=== PATIENT | male | born 1990 | race Caucasian/White ===

== ENCOUNTER 2019-06-30 02:27 | Inpatient (IN) ==
[2019-06-30] MEDS ORDERED: NS 1,000 ML IV ONE ×3 (02:38→05:14)
[2019-06-30 02:46] LABS: URINE SOURCE CATH
[2019-06-30] MEDS ORDERED: QUELICIN ONE (02:49)
[2019-06-30] MEDS ORDERED: AMIDATE ONE (02:50)
[2019-06-30 02:54] LABS: BILIRUBIN URINE SMALL (NEGATIVE); BLOOD URINE TRACE (NEGATIVE); COLOR YELLOW; GLUCOSE URINE NEGATIVE (NEGATIVE); KETONE URINE 40 mg/dL (NEGATIVE); LEUKOCYTES URINE NEGATIVE (NEGATIVE); NITRITE URINE NEGATIVE (NEGATIVE); PROTEIN URINE 200 mg/dL (NEGATIVE); SP GRAVITY URINE 1.034; TURBIDITY URINE HAZY (CLEAR); UROBILINOGEN URINE 3 mg/dL (NORMAL)
[2019-06-30 02:56] LABS: UR EPITHELIAL CELLS <10 /HPF (<10); URINE BACTERIA NEGATIVE /HPF; URINE RBC <10 /HPF (<10); URINE WBC TNTC /HPF (<10)
[2019-06-30 02:57] LABS: BASO# 0.06 X1000 (0.0-0.2); BASO% 0.4 % (0.0-0.8); HEMATOCRIT 42.5 % (42.0-52.0); HEMOGLOBIN 13.9 g/dL (14.0-18.0); IMM GRAN# 0.04 X1000 (0.0-0.04); IMM GRAN% 0.3 % (0.0-0.5); LYMPH# 1.56 X1000 (1.2-3.4); LYMPH% 11.4 % (20.5-51.1); MCH 29.4 PG (27-31); MCHC 32.7 g/dL (33-37); MCV 89.9 FL (81-99); MONO# 1.17 X1000 (0.11-0.59); MONO% 8.5 % (1.7-9.3); MPV 10.8 FL (7.4-10.4); NEUT# 10.88 X1000 (1.4-6.5); NEUT% 79.4 % (42.2-75.2); PLT 332 X1000 (130-400); RBC 4.73 XMIL (4.7-6.1); WBC 13.71 X1000 (4.8-10.8)
[2019-06-30] MEDS ORDERED: QUELICIN IV ONE (02:58)
[2019-06-30] MEDS ORDERED: DIPRIVAN 1% 1,000 MG/100 ML BOTTLE ONE (02:58)
[2019-06-30] MEDS ORDERED: DIPRIVAN 1% ONE (02:58)
[2019-06-30] MEDS ORDERED: AMIDATE IV ONE (02:58)
[2019-06-30 03:01] LABS: INR 1.18; PROTIME 15.1 Seconds (11.0-16.0); PTT 25.9 Seconds (22.3-41.8)
[2019-06-30] MEDS: DIPRIVAN 1% 1,000 MG/100 ML BOTTLE IV SCH ×8 (03:02→23:34)
[2019-06-30 03:03] LABS: URINE CASTS NONE SEEN; URINE CRYSTALS CA OXALATE PRESENT; URINE SMALL ROUND CELLS NONE SEEN; URINE YEAST NONE SEEN
[2019-06-30 03:15] LABS: UR AMPHETAMINES QUAL PRESUMPTIVE POSITIVE (NONE DETECT); UR BARBITUATES QUAL NONE DETECTED (NONE DETECT); UR BENZODIAZEPIN QUAL NONE DETECTED (NONE DETECT); UR CANNABINOIDS QUAL NONE DETECTED (NONE DETECT); UR COCAINE QUAL NONE DETECTED (NONE DETECT); UR METHADONE QUAL NONE DETECTED (NONE DETECT); UR OPIATES QUAL PRESUMPTIVE POSITIVE (NONE DETECT); UR OXYCODONE QUAL NONE DETECTED (NONE DETECT); UR PCP QUAL NONE DETECTED (NONE DETECT)
[2019-06-30 03:15] LABS: ALB/GLOB RATIO 1.6; ALBUMIN 4.5 g/dL (3.5-5.0); CALCIUM 9.5 mg/dL (8.8-10.2); CREATININE 1.6 mg/dL (0.7-1.2); POTASSIUM 3.7 mmol/L (3.5-5.1); TOTAL BILIRUBIN 0.63 mg/dL (0.20-1.00); TOTAL PROTEIN 7.4 g/dL (6.3-8.3)
[2019-06-30] MEDS ORDERED: NS 1,000 ML ONE (04:04)
[2019-06-30] MEDS ORDERED: DIPHTHERIA/TETANUS ADULT IM ONE (04:05)
[2019-06-30 04:15] LABS: ALLEN TEST YES; BE -0.6 mmoll (-3.0-3.0); BLOOD TYPE ARTERIAL; HCO3-(ACT) 24.4 mmoll (20.0-26.0); METHB 1.5 % (0.0-1.5); O2(CT) 17.5 mL/dL (15.0-23.0); O2HB 96.2 % (95.0-99.0); PCO2(98.6) 49 mmHg (35-45); PO2(98.6) 542 mmHg (60-100); SAMPLE BLOOD; SRATE 14 BPM; THB 11.8 g/dL (11.5-17.4); TVOL 500 mL; pH(98.6) 7.33 (7.35-7.45)
[2019-06-30 04:16] LABS: MODALITY VENTILATOR
--- NOTE | 2019-06-30 04:26 | PROVIDER DOCUMENTATION ---
[id number] Abuse/Overdose - General Chief Complaint: Altered Mental Status Stated Complaint: LACERATION CHIN AND HEAD Time Seen by Provider: 06/30/19 02:28 Unable to obtain history due to:: altered (Pt obtunded after getting 500mg ketamine which limits H&P.) Allergies/Adverse Reactions: Allergies Allergy/AdvReac Type Severity Reaction Status Date / Time Unable to Assess Allergy Unverified 06/30/19 05:18 - History of Present Illness-Drug/Alcohol Nature of Presenting Problem: 29 y/o Anibal Davila was brought to ER tonight by EMS. His father noted he admitted to using methamphetamines and heroin at about 5pm and around 9pm started becoming paranoid/hallucinating and displaying signs of psychosis. Father states that pt jumped head first through a window cutting his scalp. EMS notes that pt was having acute psychosis and needed to be medicated to get him to the ER with 500mg ketamine. On arrival in the ER pt is fully obtunded with snoring respirations. Nasal trumpet in place. This episode of drinking or use began:: last night Severity: reports: severe Situational problems related to:: reports: legal problems (father states that pt is on probation and got into drugs last night at [facility].) Psychiatric Complaints: reports: altered mental status, hostile Any injuries associated with this episode of intoxication?: Yes Recently seen or treated by another doctor?: No - Substance Abuse Substance Use: reports: amphetamines, opiates - Overdose List substance(s) ingested.: methamphetamines and heroin Suicide Risk Assessment: male sex, prior attempt, drug or ETOH abuse, rational thought loss (hallucinations), no spouse, psychosis Clinician's estimation of suicide risk?: high risk (Father states that pt has tried to kill self using drug OD before.) Review of Systems - Adult - REVIEW OF SYSTEMS - ADULT ROS:: unobtainable per condition Constitutional: reports: see HPI Eyes: reports: see HPI Ears, Nose, Mouth & Throat: reports: see HPI Cardiovascular: reports: see HPI Respiratory: reports: see HPI Gastrointestinal: reports: see HPI Genitourinary: reports: see HPI Musculoskeletal: reports: see HPI Integumentary: reports: see HPI Neurological: reports: see HPI Psychiatric: reports: see HPI, alcohol/drug dependence Endocrine: reports: see HPI Hematologic/Lymphatic: reports: see HPI Allergic/Immunologic: reports: see HPI All Other Systems: Reviewed and Negative Past History - Adult - PAST MEDICAL HISTORY-ADULT Review of Records: reports: Nursing Assessment Review, Medications Reviewed, Social history reviewed & non-contributory. Physical Exam-General - PHYSICAL EXAM-ADULT Exam Limited by: pt condition Initial Vital Signs Reviewed: Yes - CONSTITUTIONAL General Appearance: severe distress, obtunded - EYES Eyes: other (pinpoint 2mm pupils) - HEAD, EARS, NOSE, MOUTH & THROAT HENMT: moist mucous membranes, TMs normal - RESPIRATORY Respiratory: rhonchi (rt sided) - CARDIOVASCULAR Cardiovascular: normal peripheral pulses, tachycardia - GASTROINTESTINAL (ABDOMEN) Abdominal Exam: normal bowel sounds, soft - LYMPHATIC Lymphatic: no adenopathy - MUSCULOSKELETAL Extremity: no pedal edema, normal capillary refill - SKIN Integumentary: laceration(s) (3-4 cm rt sided scalp laceration) - NEUROLOGIC Neurologic: other (pt does have limited movement to all extremities) Progress - PLAN OF CARE/RESULTS Progress/Plan/Lab Results: Vital Signs - 8 hr 06/30/19 02:37 06/30/19 03:00 06/30/19 04:47 Temperature 99.1 F Pulse Rate 137 H 105 H Respiratory Rate 22 16 Blood Pressure 160/113 107/67 O2 Sat by Pulse Oximetry 97 100 100 06/30/19 05:00 06/30/19 05:15 06/30/19 05:30 Temperature Pulse Rate 101 H 102 H 102 H Respiratory Rate 15 15 17 Blood Pressure 105/60 115/61 111/61 O2 Sat by Pulse Oximetry 100 99 100 06/30/19 05:33 06/30/19 05:45 Temperature 96.3 F L Pulse Rate 97 H 99 H Respiratory Rate 14 15 Blood Pressure 111/61 117/59 O2 Sat by Pulse Oximetry 100 100 Laboratory Results - last 24 hr 06/30/19 06/30/19 06/30/19 02:30 02:30 02:30 WBC 13.71 H RBC 4.73 Hgb 13.9 L Hct 42.5 MCV 89.9 MCH 29.4 MCHC 32.7 L RDW Std Deviation 14.0 Plt Count 332 MPV 10.8 H Immature Gran % (Auto) 0.3 Neut % (Auto) 79.4 H Lymph % (Auto) 11.4 L [place] % (Auto) 8.5 Eos % (Auto) 0.0 Baso % (Auto) 0.4 Immature Gran # (Auto) 0.04 Neut # (Auto) 10.88 H Lymph # (Auto) 1.56 [place] # (Auto) 1.17 H Eos # (Auto) 0.00 Baso # (Auto) 0.06 PT INR PTT (Actin FS) Specimen Type Sample Site pH pCO2 pO2 HCO3 Base Excess Oxyhemoglobin ABG O2 Sat (Calculated) ABG O2 Saturation ABG Carboxyhemoglobin ABG Methemoglobin Gerardo Test A-a O2 Difference Total Hemoglobin Lactate Blood Gas Modality Spontaneous Rate FiO2 % Tidal Volume PEEP Sodium 139 Potassium 3.7 Chloride 97 L Carbon Dioxide 15 L Anion Gap 27 BUN 15 Creatinine 1.6 H Estimated GFR/1.73 m2 38 BUN/Creatinine Ratio 9 Glucose 181 H POC Glucose Calculated Osmolality 283 Calcium 9.5 Magnesium Total Bilirubin 0.63 AST 33 ALT 29 Alkaline Phosphatase 81 Creatine Kinase Creatine Kinase Index CK-MB (CK-2) Troponin T High Sens Total Protein 7.4 Albumin 4.5 Globulin 2.9 Albumin/Globulin Ratio 1.6 Plasma Lactate Urine Source Urine Color Urine Turbidity Urine pH Ur Specific Braham Urine Protein Ur Glucose (Stick) Ur Ketones (Stick) Urine Blood Urine Nitrite Urine Bilirubin Urobilinogen Dipstick Urine Leukocytes Urine WBC (Auto) Urine RBC (Auto) U Epithel Cells (Auto) Urine Bacteria (Auto) Urine Crystals Small Round Cells Urine Casts Urine Yeast-like Cells Urine Opiates Screen Ur Oxycodone Screen Ur Methadone, Qual Ur Barbiturates Screen Ur Phencyclidine Scrn Ur Amphetamines Screen U Benzodiazepines Scrn Urine Cocaine Screen U Cannabinoids Screen Plasma/Serum Ethyl Alc 06/30/19 06/30/19 06/30/19 02:30 02:30 02:30 WBC RBC Hgb Hct MCV MCH MCHC RDW Std Deviation Plt Count MPV Immature Gran % (Auto) Neut % (Auto) Lymph % (Auto) [place] % (Auto) Eos % (Auto) Baso % (Auto) Immature Gran # (Auto) Neut # (Auto) Lymph # (Auto) [place] # (Auto) Eos # (Auto) Baso # (Auto) PT 15.1 INR 1.18 PTT (Actin FS) 25.9 Specimen Type Sample Site pH pCO2 pO2 HCO3 Base Excess Oxyhemoglobin ABG O2 Sat (Calculated) ABG O2 Saturation ABG Carboxyhemoglobin ABG Methemoglobin Gerardo Test A-a O2 Difference Total Hemoglobin Lactate Blood Gas Modality Spontaneous Rate FiO2 % Tidal Volume PEEP Sodium Potassium Chloride Carbon Dioxide Anion Gap BUN Creatinine Estimated GFR/1.73 m2 BUN/Creatinine Ratio Glucose POC Glucose Calculated Osmolality Calcium Magnesium 2.2 Total Bilirubin AST ALT Alkaline Phosphatase Creatine Kinase 424 H Creatine Kinase Index 0.6 CK-MB (CK-2) 2.74 Troponin T High Sens 10 Total Protein Albumin Globulin Albumin/Globulin Ratio Plasma Lactate Urine Source Urine Color Urine Turbidity Urine pH Ur Specific Braham Urine Protein Ur Glucose (Stick) Ur Ketones (Stick) Urine Blood Urine Nitrite Urine Bilirubin Urobilinogen Dipstick Urine Leukocytes Urine WBC (Auto) Urine RBC (Auto) U Epithel Cells (Auto) Urine Bacteria (Auto) Urine Crystals Small Round Cells Urine Casts Urine Yeast-like Cells Urine Opiates Screen Ur Oxycodone Screen Ur Methadone, Qual Ur Barbiturates Screen Ur Phencyclidine Scrn Ur Amphetamines Screen U Benzodiazepines Scrn Urine Cocaine Screen U Cannabinoids Screen Plasma/Serum Ethyl Alc 06/30/19 06/30/19 06/30/19 02:41 02:41 03:55 WBC RBC Hgb Hct MCV MCH MCHC RDW Std Deviation Plt Count MPV Immature Gran % (Auto) Neut % (Auto) Lymph % (Auto) [place] % (Auto) Eos % (Auto) Baso % (Auto) Immature Gran # (Auto) Neut # (Auto) Lymph # (Auto) [place] # (Auto) Eos # (Auto) Baso # (Auto) PT INR PTT (Actin FS) Specimen Type ARTERIAL Sample Site R RADIAL pH 7.33 L pCO2 49 H pO2 542 H HCO3 24.4 Base Excess -0.6 Oxyhemoglobin 96.2 ABG O2 Sat (Calculated) 17.5 ABG O2 Saturation 100.0 ABG Carboxyhemoglobin 2.30 ABG Methemoglobin 1.5 Gerardo Test YES A-a O2 Difference 110.0 Total Hemoglobin 11.8 Lactate 0.90 Blood Gas Modality VENTILATOR Spontaneous Rate 14 FiO2 % 100.0 Tidal Volume 500 PEEP 5.0 Sodium Potassium Chloride Carbon Dioxide Anion Gap BUN Creatinine Estimated GFR/1.73 m2 BUN/Creatinine Ratio Glucose POC Glucose Calculated Osmolality Calcium Magnesium Total Bilirubin AST ALT Alkaline Phosphatase Creatine Kinase Creatine Kinase Index CK-MB (CK-2) Troponin T High Sens Total Protein Albumin Globulin Albumin/Globulin Ratio Plasma Lactate Urine Source CATH Urine Color YELLOW Urine Turbidity HAZY Urine pH 6.0 Ur Specific Braham 1.034 Urine Protein 200 A Ur Glucose (Stick) NEGATIVE Ur Ketones (Stick) 40 A Urine Blood TRACE A Urine Nitrite NEGATIVE Urine Bilirubin SMALL A Urobilinogen Dipstick 3 A Urine Leukocytes NEGATIVE Urine WBC (Auto) TNTC A Urine RBC (Auto) <10 U Epithel Cells (Auto) <10 Urine Bacteria (Auto) NEGATIVE Urine Crystals CA OXALATE PRESENT Small Round Cells NONE SEEN Urine Casts NONE SEEN Urine Yeast-like Cells NONE SEEN Urine Opiates Screen PRESUMPTIVE POSITIVE A Ur Oxycodone Screen NONE DETECTED Ur Methadone, Qual NONE DETECTED Ur Barbiturates Screen NONE DETECTED Ur Phencyclidine Scrn NONE DETECTED Ur Amphetamines Screen PRESUMPTIVE POSITIVE A U Benzodiazepines Scrn NONE DETECTED Urine Cocaine Screen NONE DETECTED U Cannabinoids Screen NONE DETECTED Plasma/Serum Ethyl Alc 06/30/19 06/30/19 05:06 05:15 WBC RBC Hgb Hct MCV MCH MCHC RDW Std Deviation Plt Count MPV Immature Gran % (Auto) Neut % (Auto) Lymph % (Auto) [place] % (Auto) Eos % (Auto) Baso % (Auto) Immature Gran # (Auto) Neut # (Auto) Lymph # (Auto) [place] # (Auto) Eos # (Auto) Baso # (Auto) PT INR PTT (Actin FS) Specimen Type Sample Site pH pCO2 pO2 HCO3 Base Excess Oxyhemoglobin ABG O2 Sat (Calculated) ABG O2 Saturation ABG Carboxyhemoglobin ABG Methemoglobin Gerardo Test A-a O2 Difference Total Hemoglobin Lactate Blood Gas Modality Spontaneous Rate FiO2 % Tidal Volume PEEP Sodium Potassium Chloride Carbon Dioxide Anion Gap BUN Creatinine Estimated GFR/1.73 m2 BUN/Creatinine Ratio Glucose POC Glucose 87 Calculated Osmolality Calcium Magnesium Total Bilirubin AST ALT Alkaline Phosphatase Creatine Kinase Creatine Kinase Index CK-MB (CK-2) Troponin T High Sens Total Protein Albumin Globulin Albumin/Globulin Ratio Plasma Lactate 0.6 Urine Source Urine Color Urine Turbidity Urine pH Ur Specific Braham Urine Protein Ur Glucose (Stick) Ur Ketones (Stick) Urine Blood Urine Nitrite Urine Bilirubin Urobilinogen Dipstick Urine Leukocytes Urine WBC (Auto) Urine RBC (Auto) U Epithel Cells (Auto) Urine Bacteria (Auto) Urine Crystals Small Round Cells Urine Casts Urine Yeast-like Cells Urine Opiates Screen Ur Oxycodone Screen Ur Methadone, Qual Ur Barbiturates Screen Ur Phencyclidine Scrn Ur Amphetamines Screen U Benzodiazepines Scrn Urine Cocaine Screen U Cannabinoids Screen Plasma/Serum Ethyl Alc Orders Category Date Time Status Notify MD of + Sepsis Screen NOW Care 06/30/19 05:07 Active Notify Physician As Ordered Care 06/30/19 05:07 Active Restraint Initiate NonViolent ONCE Care 06/30/19 05:[address] HEAD/C-SPINE W/O CONTRAST [CT] Stat Exams 06/30/19 02:36 Taken cspine [P'TBLE-CERVICAL SPINE 1 VIEW] [RAD] Stat Exams 06/30/19 03:35 Taken cxr [CHEST-1 VIEW] [RAD] Stat Exams 06/30/19 02:37 Taken ABG [RESP] Routine Lab 06/30/19 03:55 Completed ALCOHOL BLOOD Stat Lab 06/30/19 02:30 Completed BLOOD CULTURE [BLDCUL] Stat Lab 06/30/19 05:15 Results CBC WITH ELECTRONIC DIFF [HEME] Stat Lab 06/30/19 02:30 Completed CK PROFILE [SP CHEM] Stat Lab 06/30/19 02:30 Completed COMPREHENSIVE METABOLIC PANEL [CHEM] Stat Lab 06/30/19 02:30 Completed LACTATE, PLASMA [CHEM] Lab 06/30/19 08:15 Uncollected LACTATE, PLASMA [CHEM] Lab 06/30/19 11:15 Uncollected LACTATE, PLASMA [CHEM] Q3H Lab 06/30/19 05:15 Completed MAGNESIUM [CHEM] Stat Lab 06/30/19 02:30 Completed PROTIME WITH INR [COAG] Stat Lab 06/30/19 02:30 Completed PTT [COAG] Stat Lab 06/30/19 02:30 Completed TROPONIN T HIGH SENSITIVITY Stat Lab 06/30/19 02:30 Completed URINALYSIS W/POSS RFLX CULT [URINALYSIS] Stat Lab 06/30/19 02:41 Completed URINE DRUG SCREEN Stat Lab 06/30/19 02:41 Completed URINE MANUAL MICROSCOPIC [URINALYSIS] Stat Lab 06/30/19 02:41 Completed 0.9% Sodium Chloride Inj [Ns] 1,000 ml Med 06/30/19 04:04 Discontinued .ROUTE As directed 0.9% Sodium Chloride Inj [Ns] 1,000 ml Med 06/30/19 02:38 Discontinued IV 999 mls/hr 0.9% Sodium Chloride Inj [Ns] 1,000 ml Med 06/30/19 05:11 Discontinued IV 999 mls/hr 0.9% Sodium Chloride Inj [Ns] 1,000 ml Med 06/30/19 05:14 Discontinued IV 999 mls/hr Diphtheria/Tetanus Adult Med 06/30/19 04:05 Discontinued 0.5 ml IM .ONCE ONE Etomidate [Amidate] Med 06/30/19 02:58 Discontinued 20 mg IV NOW ONE Etomidate [Amidate] Med 06/30/19 02:50 Discontinued 40 mg .ROUTE .STK-MED ONE Propofol [Diprivan 1%] Med 06/30/19 02:58 Discontinued 200 mg .ROUTE .STK-MED ONE Propofol [Diprivan 1%] Med 06/30/19 02:58 Discontinued 1,000 mg in 100 ml .ROUTE As directed Propofol [Diprivan 1%] Med 06/30/19 03:00 Active 1,000 mg in 100 ml IV As Directed mls/hr Succinylcholine [Quelicin] Med 06/30/19 02:58 Discontinued 100 mg IV NOW ONE Succinylcholine [Quelicin] Med 06/30/19 02:49 Discontinued 200 mg .ROUTE .STK-MED ONE Result Diagrams: 06/30/19 02:30 06/30/19 02:30 - CT/MRI 1 CT Study: Head Impression: Normal, See EMR Report 2 CT Study: Cervical Spine Impression: Abnormal, See EMR Report (teardrop fracture c5 without displacement or perivertebral edema.) - CONSULTS/PCP/HOSPITALIST Notification #1 *Consult/PCP/Hospitalist*: Dr Ac (spine at ) Time Discussed: 06:14 Reason/Comments: recommended to keep pt here in collar and do flexion/ extension imaging or Consult Disposition: other (or MRI when condition improves.) #2 Consult: Dr Lyons Time Discussed: 06:15 Consult Disposition: Will see in ED, Admit Procedures - LACERATION/WOUND REPAIR/FB Right Lateral See Other Wound Location: Other: Rt lateral scalp Wound Length: 4cm Wound's Depth, Shape: irregular Wound Explored/Foreign Body: clean Irrigated with Saline?: Yes Prepped with: Filippoiclestoney Wound Debrided: moderate Wound Repaired with: Koko-Large (6) Number of Sutures: 6 (koko) Layer Closure?: No - INTUBATION Mallampati Class: 1 Intubation Method: orotracheal Equipment: Glidescope Tube Size (cm): 7.5 Pretreated with 100% Oxygen?: Yes Breath Sounds after Intubation: equal ETT Primary Tube Confirmation: Capnometry CO2 Change, Direct Visualization, Ches t Rise and Fall, Tube placement verified on XRAY Intubation Complications: no complications Vent Settings: See Respiratory Therapy Notes Departure - Departure Date of Disposition Decision: 06/30/19 Time of Disposition Decision: 06:13 DIAGNOSIS: Polysubstance abuse, Scalp laceration, Teardrop fracture of cervical vertebra, Altered mental status Disposition: ADMITTED INPATIENT 09 Certified Medical Emergency: Emergent Condition: Serious Referrals and Follow-Ups: None,PCP [Primary Care Provider] - - Critical Care Note This patient required my direct & personal management of CC.: Yes Total Time (mins): 60 Critical Care Statement: This patient required my direct personal management to treat or rule out processes, the absence of which, could potentiallly result in sudden, clinically significant life or limb threatening deterioration. Attestation - Physician/ TORI Attestation Patient care was provided by Advanced Practice Provider:: No The physician spent face to face time with patient:: Yes Advanced Practice Provider documentation review:: Supervising physician onsite and consulted in the evaluation and care of this patient. The physician did have a face to face encounter with the patient.
[2019-06-30 05:43] LABS: MAGNESIUM 2.2 mg/dL (1.5-2.7)
[2019-06-30 06:12] LABS: CK INDEX 0.6 (0.0-2.5); CK-MB 2.74 ng/mL (0.0-5.0)
--- NOTE | 2019-06-30 07:37 | HISTORY AND PHYSICAL ---
CHIEF COMPLAINT: Per ED records, altered mental status. HISTORY OF PRESENT ILLNESS: Mr. Davila is a 29-year-old male who was brought into the ED by EMS. His father stated that the patient had been using methamphetamines and heroin around 5 p.m. He had just gotten out of rehab in the morning. I believe he had been asked to leave the rehab. At around 9 p.m., he started getting paranoid and hallucinating. He tried to jump out of a window headfirst and he got a scalp laceration. EMS was called. He was having acute psychosis and needed to be medicated to bring him to the ED. He was given 500 mg of ketamine. On arrival to the ED, the patient was fully obtunded, snoring with a nasal trumpet in place. He was intubated once he was brought into the emergency room and had to be just sedated and restrained as well. Full workup in the ED showed a toxicology screen that was positive for opiates and amphetamines and acute kidney injury with a creatinine of 1.6. CT of the head was normal. Cervical spine done showed a teardrop fracture at C5 without displacement or perivertebral edema. ED spoke with Dr. Ac at the Spine at [facility]. They recommended to keep the patient here in a collar and do flexion and extension imaging or MRI when his condition improves. He also received juan to his right lateral scalp. He will be placed in the ICU and sedated until his mentation improves with a consult for Pulmonology and Machine Setup Operator. PAST MEDICAL HISTORY: Per father at bedside, meth and heroin addict. He has been in and out of drug rehab over the past year and a half and he was put out yesterday, living at the [facility], on probation. Tobacco user, 1 pack per day. PAST SURGICAL HISTORY: Inguinal hernia repair. ALLERGIES: No known drug allergies. HOME MEDICATIONS: None. FAMILY HISTORY: Father with high blood pressure. Grandfather with colon cancer, liver and lung. SOCIAL HISTORY: The patient had been before. Father was unsure if they ever got a divorce or if they were just . He has been to long-term. He is on probation. He has been in and out of rehab now for over the last year and a half and was just put out yesterday and was staying at the [facility]. REVIEW OF SYSTEMS: Hard to obtain secondary to the patient being intubated and sedated. PHYSICAL EXAMINATION: VITAL SIGNS: Temperature is 97.4 degrees, heart rate 103, respirations 15, blood pressure 120/60, O2 is 99% on mechanical ventilation. HEENT: Patient has a head laceration to the right lateral scalp with juan. He is also in a C- collar secondary to a teardrop fracture at C5. He is currently intubated with an OG tube in place. Pupils are PERRL. NECK: Supple. Trachea midline. CARDIOVASCULAR: S1, S2 appreciated. No murmurs, gallops, rubs noted. RESPIRATORY: Lung sounds clear bilaterally. GASTROINTESTINAL: Soft, nontender, nondistended. Positive bowel sounds 4 quadrants. EXTREMITIES: Lower extremities are negative for edema. Bilateral pedal pulses are pounding. NEUROLOGIC: Unable to assess secondary to the patient been intubated and sedated. DIAGNOSTIC DATA: Head CT did not show anything acute. Cervical spine did show a teardrop fracture at C5 with no edema. LABORATORY DATA: White count 13, hemoglobin and hematocrit 13 and 42, platelet count is 332,000. Sodium 139, potassium 3.7, BUN 15, creatinine 1.6, blood glucose is 181. CK 424. Troponin 10. Plasma lactate 0.6. Toxicology screen was positive for opiates and amphetamines. Alcohol level was 0. ASSESSMENT AND PLAN: 1. Toxic metabolic encephalopathy secondary to methamphetamine and heroin use with psychosis. The patient was sedated by EMS, then had to be intubated and sedated and placed on mechanical ventilation upon arrival to the ED. The patient was very hostile and combative. He does have a head laceration to the right lateral where he tried to jump out a window as well as a C5 cervical fracture with a C-collar on. We will continue with aggressive IV hydration, wean him off ventilator and his sedation when patient is more appropriate. He is currently in bilateral wrist restraints. We will consult with Pulmonology to manage the ventilator. 2. Metabolic/Respiratory acidosis.Continue on aggressive IV hydration and ventilator recheck labs. 3. Acute kidney injury. We will continue with aggressive IV hydration. Recheck his kidney function in the a.m. 4. Hyperglycemia. Father denies any history of diabetes. 5. Teardrop fracture at C5 without displacement or perivertebral edema. We will continue with C- collar. Dr. Ac at [facility] at [facility] recommended to keep the patient here in a collar and do flexion and extension imaging or MRI with the patient's condition improves. 6. Right lateral scalp laceration with juan. Continue with local wound care. 7. Methamphetamine and heroin use and abuse. The patient will need continued education on abstinence when he is more appropriate. 8. Tobacco use and abuse. The patient will need education when appropriate. Further recommendation to follow physician evaluation, laboratory and diagnostic data. Dictated by ABENA Matthews for Arsenio Lyons MD I have performed a face to face diagnostic evaluation. Labs/ Xrays- reviewed. Exam- Chest clear, CV- regular, Neuro- sedated. A/P- Drug Overdose with heroin and methamphetamine- Admit to ICU, vent management, supportive care. Dr. Lyons cc: MD Eloy Cervantes MD [facility]
--- NOTE | 2019-06-30 07:58 | EKG Report ---
Test Performed on : 06/30/2019 05:22:43 AM Test Reason : ED. NO EKG ORDER FOR MUSE Blood Pressure : / mmHG Vent. Rate : 096 BPM Atrial Rate : 096 BPM P-R Int : 118 ms QRS Dur : 092 ms QT Int : 386 ms P-R-T Axes : 067 063 058 degrees QTc Int : 487 ms Normal sinus rhythm. Prolonged QT Abnormal ECG No previous ECGs available Unconfirmed Result
[2019-06-30] MEDS ORDERED: ZOFRAN IV PRN (08:24)
--- NOTE | 2019-06-30 08:29 | Diag Imaging Result Doc PS360 ---
EXAM: CT HEAD/C-SPINE W/O CONTRAST INDICATION: head injury/pain TECHNIQUE: This exam was performed using automated exposure control, adjustment of mA or kV according to patient size, and/or use of iterative reconstruction technique. COMPARISON: None. FINDINGS: Head: There is no definite acute infarct given the limited sensitivity of CT versus MRI. There is no discrete intracranial mass, mass effect, or intracranial hemorrhage. There is moderate right maxillary sinus mucosal disease and milder ethmoid sinus mucosal disease. There is fluid in the nasal cavity, which is likely due to intubation. There is extensive scalp edema on the right indicating soft tissue contusion. The calvaria is intact. C-spine: There is a small fragmented ventral marginal osteophyte at the C5-6 level. The acuity of this finding is questionable. However, an acute avulsion fracture cannot be excluded. The central canal appears to be grossly patent. There is no other discrete fracture, subluxation, or intrinsic osseous lesion. The patient is intubated. There is layering fluid in the pharynx posteriorly that may be due to the intubation. This gives the impression of prevertebral soft tissue thickening. Given that this fluid somewhat obscures the border of the soft tissue, a component of actual soft tissue edema is not excluded. IMPRESSION: 1.No evidence of acute intracranial pathology. 2.Prominent scalp edema on the right but no underlying calvarial fracture. 3.Fragmentation of a ventral marginal osteophyte at the C5-6 level. Although the acuity is questionable, it would be difficult to completely exclude an acute avulsion. Correlation with MRI is recommended if not contraindicated. 4.Fluid layering in the pharynx that is probably due to intubation. A component of true prevertebral soft tissue thickening cannot completely be excluded. Again, correlation with MRI is recommended if not contraindicated. Electronically signed by Sarmad Hebert 06/30/2019 8:27 AM
[2019-06-30] MEDS: SODIUM CHLORIDE 0.9% INJ SCH (09:16)
[2019-06-30] MEDS: PEPCID IV SCH ×2 (09:16→21:28)
[2019-06-30] MEDS: NS 1,000 ML IV SCH ×2 (09:16→16:57)
--- NOTE | 2019-06-30 10:42 | PROVIDER PROGRESS NOTE ---
Progress Note Patient has been seen and examined. A full dictation to follow.
--- NOTE | 2019-06-30 13:05 | PROGRESS NOTE ---
DATE: 06/30/2019 SUBJECTIVE: I have seen and examined Mr. Davila today. He was in the ICU, currently intubated and sedated on propofol. He is not able to give any interval history. The father was at the bedside at the time of the encounter. The father narrates that Mr. Davila has had a very long history of substance abuse. He has been in and out of rehab. He recently was at [facility] He left there yesterday, came to his house, and later in the evening he saw that his son, who is the patient, was saying people were trying to come after him, just busted through a window, and that is when he called 911 and the patient was brought in. I understand on the way to the emergency room, he became so belligerent that he had to be sedated with ketamine. A couple minutes in the ER, he had to be intubated. OBJECTIVE: Vital Signs: Blood pressure is 118/78, pulse of 80, respirations 17, temperature 97.4 degrees. General: Mr. Davila is a 29-year-old gentleman. He is in bed. He is currently intubated and sedated. HEENT: Mucosa is pink and moist. Anicteric. Acyanotic. Patient has shaved the right side of his parietal scalp. There is a small ulceration which is fronted with clips. Chest: Good air entry bilateral. There are no crepitations. Cardiovascular: Regular rate and rhythm. Abdomen: Soft. Bowel sounds present. Extremities: No pedal edema. Central Nervous System: The patient is currently intubated and sedated on propofol. The pupils are kind of pinpoint, but they are reactive, and he wiggles around whenever you are disturbing him. LABORATORY DATA: Has been reviewed. No major abnormalities. The urine toxicology was positive for opioids and amphetamines. Chest x-ray, which was done, shows some mild congestion in the lungs, but for most part unremarkable, waiting on the official report. On the chemistry, the patient did have high anion gap metabolic acidosis, as well as respiratory acidosis, and metabolic alkalosis. ASSESSMENT AND PLAN: 1. Acute drug-induced psychotic reaction. 2. Respiratory failure. Patient is status post endotracheal intubation to maintain the airway. 3. Triple acid-base disturbance (high anion gap metabolic acidosis, respiratory acidosis, and metabolic alkalosis) with normal osmolar gap. We will continue to monitor. The patient is currently on the ventilator taking care of the respiratory part. We will continue with the intravenous fluids for the alkalosis, and we will recheck on his labs in the morning and make necessary correlation as needed. 4. Polysubstance abuse. Urine toxicology is positive for methamphetamine and opioids. 5. History of his polysubstance abuse, aware. cc: David Ludwig MD
[2019-06-30 18:41] LABS: URINE SOURCE CATH
[2019-06-30 18:49] LABS: BILIRUBIN URINE NEGATIVE (NEGATIVE); BLOOD URINE MODERATE (NEGATIVE); COLOR ORANGE; GLUCOSE URINE NEGATIVE (NEGATIVE); KETONE URINE 20 mg/dL (NEGATIVE); LEUKOCYTES URINE NEGATIVE (NEGATIVE); NITRITE URINE NEGATIVE (NEGATIVE); PROTEIN URINE 50 mg/dL (NEGATIVE); TURBIDITY URINE HAZY (CLEAR); UR EPITHELIAL CELLS <10 /HPF (<10); URINE BACTERIA NEGATIVE /HPF; URINE RBC TNTC /HPF (<10); URINE WBC <10 /HPF (<10); UROBILINOGEN URINE NORMAL (NORMAL)
[2019-06-30] MEDS: ATIVAN IV PRN ×2 (19:36→23:34)
[2019-06-30] MEDS ORDERED: MORPHINE IV ONE (19:41)
--- NOTE | 2019-06-30 20:16 | CONSULTATION ---
DATE OF CONSULTATION: 06/30/2019 REQUESTING PROVIDER: ABENA Contreras. REASON FOR CONSULTATION: Mechanical ventilation. HISTORY OF PRESENT ILLNESS: This is a 29-year-old male with medical history of polysubstance abuse including methamphetamine and heroin. He presented to the ER via EMS only this morning with acute toxic metabolic encephalopathy secondary to methamphetamine and heroin use. Per H P, the patient just got out of rehab yesterday morning. Yesterday afternoon, the patient's father noticed that the patient had been using methamphetamine and heroin. Around 9 p.m., the patient developed paranoia and hallucinations. The patient jumped out of the window with head first, hitting the window INCOMPLETE REPORT - DICTATION ENDS HERE. cc: Yasir High MD
--- NOTE | 2019-06-30 21:28 | CONSULTATION ---
DATE OF CONSULTATION: 06/30/2019 REQUESTING PROVIDER: ABENA Matthews REASON FOR CONSULTATION: Mechanical ventilator. HISTORY OF PRESENT ILLNESS: This is a 29-year-old male with a medical history of polysubstance abuse, including methamphetamines and heroin. He presented to the ER early this morning via EMS with acute toxic metabolic encephalopathy secondary to methamphetamine and heroine use. Per H P, patient just got off rehab yesterday morning. Yesterday afternoon around 5 PM patient's father noticed that patient was using methamphetamines and heroin in his house. Around 9 p.m. patient started developing paranoia and hallucinations. He apparently tried to jump off the window. His head forced through and he got a scalp laceration. On the way to the ER the patient had been medicated with 500 ketamine secondary to acute psychosis. Upon arrival to the ER, he required intubation. Further workup also revealed a teardrop fracture at C5. The patient is currently still intubated and sedated. He is in a C-collar. Propofol drip is maximal at 80 mcg/kg/minute. His vital signs are stable, within normal limits. He is on Edge with urine in the drainage bag and bowl and cloudy. He appears disheveled. There is no family at the bedside. All other information is obtained from the e-chart. PAST MEDICAL HISTORY: Per H P, the patient had polysubstance abuse, including methamphetamine and heroin. He has been in and out of drug rehab over the past year and a half. The patient also is a daily tobacco user. He smokes 1 pack per day. PAST SURGICAL HISTORY: Inguinal hernia repair. SOCIAL HISTORY: Per H P, the patient was in group home before. He is on probation. He is a daily smoker about 1 pack per day. He has a chronic history off polysubstance abuse, including methamphetamine and heroin. FAMILY HISTORY: Positive for hypertension and colon cancer. ALLERGIES: No known drug allergies. REVIEW OF SYSTEMS: Unable to be obtained. PHYSICAL EXAMINATION: Vital Signs: Temperature 97.7, blood pressure of 126/84, pulse 85, respiratory rate 18. Oxygen saturation 100% on AC mechanical ventilator with spontaneous rate 15, FIO2 40%, tidal volume 400 and PEEP 5. General: Intubated, disheveled in a C-collar lying in bed, with no acute distress noted. HEENT: Normocephalic, right parietal scalp laceration with halo shaft and juan in place. ET tube in place. Mucosa pink and moist. Respiratory: Mechanical ventilator, symmetrical excursion, clear to auscultation bilaterally. Cardiovascular: Regular rate and rhythm with S1-S2 appreciated. GASTROINTESTINAL: Soft, nontender, nondistended. Normoactive bowel sounds all 4 quadrants.Extremities: No pedal edema. No cyanosis. No clubbing. Dorsalis pedis 2+ bilaterally. NEUROLOGIC: Sedated. LAB DATA: White blood cells 14.71, hemoglobin 14.9, hematocrit 42.5 platelets 332,000. Sodium 139, potassium 3.7, chloride 97, carbon dioxide 15, BUN 15, creatinine 1.6, glucose 181, creatine kinase 424. ABG pH is 7.33, pCO2 49, PO2 of 542, HC03 24.4, base excess -0.6, oxyhemoglobin 96.2 on the mechanical ventilator with spontaneous rate 14, FiO2 100%, tidal volume 500 and PEEP 5. ADMISSION DATA: CT of the head was nonsignificant. Cervical spine showed a teardrop fracture at C5 with displacement or perivertebral edema. Chest x-ray was nonsignificant, but the official report is not available at this time. ASSESSMENT: This is a 29-year-old male with a medical history of polysubstance abuse, including methamphetamines and heroin and tobacco abuse. He has been admitted to the ICU today with acute respiratory failure, toxic metabolic encephalopathy with psychosis secondary to methamphetamine and heroin use, acute respiratory acidosis, anion gap metabolic acidosis and metabolic alkalosis, acute kidney injury, C5 teardrop fracture with scalp laceration. 1. Acute respiratory failure, requires intubation. 2. Toxic metabolic encephalopathy with psychosis secondary to methamphetamine and heroin use. 3. Chronic polysubstance abuse, including methamphetamine and heroin. 4. Acute respiratory acidosis, anion gap metabolic acidosis and metabolic alkalosis. 5. Acute kidney injury. 6. Scalp laceration and C5 teardrop fracture with no displacement or perivertebral edema. 7. Ongoing tobacco abuse. PLAN: 1. Continue AC mechanical ventilator. We will start weaning trials when appropriate. 2. Continue sedation titration per clinical protocol. 3. Follow up with CBC, CMP, ABG, urine culture, blood cultures and chest x-ray. 4. Tobacco cessation eduction when appropriate 5. Further recommendations pending hospital course. Thank you for the courtesy of this consult. cc: Yasir High MD
[2019-07-01] MEDS: NS 1,000 ML IV SCH ×3 (00:47→16:48)
[2019-07-01] MEDS: DIPRIVAN 1% 1,000 MG/100 ML BOTTLE IV SCH ×5 (02:04→13:09)
[2019-07-01] MEDS: ATIVAN IV PRN (04:41)
[2019-07-01 04:45] LABS: ALLEN TEST YES; BE -4.4 mmoll (-3.0-3.0); BLOOD TYPE ARTERIAL; HCO3-(ACT) 21.5 mmoll (20.0-26.0); METHB 0.9 % (0.0-1.5); O2(CT) 13.6 mL/dL (15.0-23.0); O2HB 97.2 % (95.0-99.0); PCO2(98.6) 39 mmHg (35-45); PO2(98.6) 165 mmHg (60-100); SAMPLE BLOOD; SAO2 100.1 % (95.0-100.0); SRATE 15 BPM; THB 9.7 g/dL (11.5-17.4); TVOL 400 mL; pH(98.6) 7.34 (7.35-7.45)
[2019-07-01 05:03] LABS: MODALITY VENTILATOR
[2019-07-01 06:33] LABS: BASO# 0.01 X1000 (0.0-0.2); BASO% 0.1 % (0.0-0.8); HEMATOCRIT 30.6 % (42.0-52.0); HEMOGLOBIN 9.2 g/dL (14.0-18.0); LYMPH# 1.29 X1000 (1.2-3.4); LYMPH% 13.8 % (20.5-51.1); MCH 28.3 PG (27-31); MCHC 30.1 g/dL (33-37); MCV 94.2 FL (81-99); MONO# 0.72 X1000 (0.11-0.59); MONO% 7.7 % (1.7-9.3); MPV 11.5 FL (7.4-10.4); NEUT# 7.33 X1000 (1.4-6.5); NEUT% 78.4 % (42.2-75.2); PLT 167 X1000 (130-400); RBC 3.25 XMIL (4.7-6.1); RDW 14.5 % (11.5-14.5); WBC 9.35 X1000 (4.8-10.8)
[2019-07-01 06:59] LABS: AGAP 10; ALB/GLOB RATIO 1.2; ALBUMIN 2.6 g/dL (3.5-5.0); ALKALINE PHOSPHATASE 54 U/L (32-122); BUN 8 mg/dL (8-22); CALCIUM 7.4 mg/dL (8.8-10.2); CHLORIDE 110 mmol/L (98-107); COSMO 276; CREATININE 0.8 mg/dL (0.7-1.2); ESTIMATED GFR > 60; GLUCOSE 70 mg/dL (70-104); GOT 23 U/L (10-34); GPT 17 U/L (10-44); POTASSIUM 3.8 mmol/L (3.5-5.1); SODIUM 140 mmol/L (136-145); TCO2 20 mmol/L (25-35); TOTAL BILIRUBIN 0.27 mg/dL (0.20-1.00); TOTAL PROTEIN 4.7 g/dL (6.3-8.3)
--- NOTE | 2019-07-01 07:37 | Diag Imaging Result Doc PS360 ---
CHEST-PORTABLE - 07/01/2019 INDICATION: vent COMPARISON: 06/30/2019 FINDINGS: Support tubes are stable and in good position. Stable pulmonary masslike opacity in the left lung base. No new infiltrates. Heart size remains normal. No pneumothorax or pleural effusion. IMPRESSION: No change from prior. Electronically signed by Sudhir Desouza 07/01/2019 7:34 AM
[2019-07-01] MEDS: PEPCID IV SCH ×2 (08:08→21:03)
[2019-07-01] MEDS: SODIUM CHLORIDE 0.9% INJ SCH (08:09)
--- NOTE | 2019-07-01 11:15 | PROGRESS NOTE ---
DATE: 07/01/2019 SUBJECTIVE: This morning, Mr. Davila remains stable. The dad was not at bedside at the time of the encounter today. No changes overnight. OBJECTIVE: Vital Signs: Blood pressure is 114/65, pulse of 88, respirations 20, temperature is 99.0. General: Mr. Davila is a 29-year-old, gentleman. He is in bed. No distress. HEENT: Mucosa is pink and moist. Anicteric. Acyanotic. The scalp on the right side is shaved and has a small laceration, which is affronted with surgical clips. Neck: There is a cervical collar in place, and the patient is currently intubated and sedated. Chest: Good air entry bilaterally. There were no crepitations, no rhonchi. Cardiovascular: Regular rate and rhythm. No murmurs, no rubs, no gallops. GI: Abdomen was soft. Extremities: No pedal edema. SENIOR MICROSTRATEGY DEVELOPER: The patient is sedated on propofol. He would, however, withdrawal to pain. Pupils are pinpoint, but reactive. LABORATORY DATA: WBC is 9.35, hemoglobin is 9.2, platelet count of 167,000. Chemistry is also reviewed, and for the most part, unremarkable. So far, blood cultures are still pending. Urine culture is negative. IMAGING STUDIES: A chest x-ray this morning showed no change from prior. MEDICATIONS: Have been reviewed. ASSESSMENT: 1. Acute drug-induced psychotic reaction. 2. Respiratory failure. The patient is currently on mechanical ventilation. 3. Triple acid-base disturbance on admission, improved. 4. Polysubstance use and abuse. Urine toxicology was positive for methamphetamines and opioids. 5. History of polysubstance abuse in the past with multiple rehabs. In general, I think Mr. Davila is doing well. He is going to be starting a weaning trial soon. Hopefully, will be able to extubate him, and then continue with his care. Addendum: successfully extubated. continue to monitor. Possible transfer to floor tomorrow. cc: MD PASTOR Manriquez
--- NOTE | 2019-07-01 12:29 | Diag Imaging Result Doc PS360 ---
P'TBLE-CERVICAL SPINE- 06/30/2019 INDICATION: injury TECHNIQUE: Two views COMPARISON: None FINDINGS: There is an endotracheal tube and nasogastric tube in good position. Alignment is anatomic. Vertebral body heights and intervertebral disc spaces are preserved. Soft tissues are clear. IMPRESSION: No acute injury. Electronically signed by Sudhir Desouza 06/30/2019 7:52 AM
--- NOTE | 2019-07-01 12:29 | Diag Imaging Result Doc PS360 ---
CHEST-1 VIEW - 06/30/2019 INDICATION: ams COMPARISON: None FINDINGS: There is an endotracheal tube and nasogastric tube in good position. There is a pulmonary masslike opacity in the left lung base. This measures 2.2 x 2.8 cm. This is oval and appears to have circumscribed borders. Otherwise, no significant infiltrates. Heart size and mediastinal contours are normal. IMPRESSION: 1. Good support tube placement. 2. Left basilar pulmonary mass or masslike infiltrate. Consider a chest CT. Electronically signed by Sudhir Desouza 06/30/2019 6:38 AM
[2019-07-01] MEDS ORDERED: PRECEDEX 200 MICROGM in NS 48 ML IV SCH (12:30)
--- NOTE | 2019-07-01 13:15 | PROVIDER PROGRESS NOTE ---
Progress Note Dr. High Progress Note/Pulmonary and or critical care We appreciated progress of care, Complications, change in diagnosis, and instructions to patient. Subjective: We note the level of consciousness, bed (chair) position, family presence (if any), level of lethargy, feeling of symptoms, and changes from baseline condition/symptom. The patient is intubated and sedated. He is unresponsive to verbal stimuli. He is in a C-collar with a warmer blanket on. He is on maximal propofol drip at 80 mcg/kg/min at this time. His vital signs are stable within normal limit. He is on Edge with urine in the drainage bag cloudy in light black color. Weaning trials planning today. No family at the bedside. Objective: Vital Signs: We reviewed EMR current values for Pulse rate, Blood pressure, Pulse rate, respiratory rate and Pulse oximetry. Also noted other values and trends if present (e.g. I/O, CVP). T 97.5, MS 80, RR 20, BP 113/64 and SaO2 100% on AC 15, 40%, 400 and 5. I/O +2938 ml Physical Examination: General: Intubated. In a C-collar. On a warmer blanket. Lying in bed with no acute distress noted. HEENT: Normocephalic. Right parietal scalp laceration with hair shaved and [address] Mucus pink and moist. Chest: Mechanically ventilated. Symmetrical excursion. Clear to auscultation bilaterally. CVS: Regular rate and rhythm with S1 and S2 appreciated. Abdomen: Soft. Non-distended. Normoactive bowel sounds in all 4 quadrants noted. Extremities: No pedal edema. No cyanosis. No clubbing. Dorsalis pedis 2+ bilaterally. Neuro: Sedated. Labs and Radiology: Reviewed available labs and radiology values available at time of EMR review. Laboratory Results 06/30/19 07/01/19 07/01/19 18:20 04:00 04:00 WBC 9.35 RBC 3.25 L Hgb 9.2 L D Hct 30.6 L D MCV 94.2 MCH 28.3 MCHC 30.1 L RDW Std Deviation 14.5 Plt Count 167 D MPV 11.5 H Immature Gran % (Auto) 0.0 Neut % (Auto) 78.4 H Lymph % (Auto) 13.8 L Mcculloch % (Auto) 7.7 Eos % (Auto) 0.0 Baso % (Auto) 0.1 Immature Gran # (Auto) 0.00 Neut # (Auto) 7.33 H Lymph # (Auto) 1.29 Mcculloch # (Auto) 0.72 H Eos # (Auto) 0.00 Baso # (Auto) 0.01 Specimen Type Sample Site pH pCO2 pO2 HCO3 Base Excess Oxyhemoglobin ABG O2 Sat (Calculated) ABG O2 Saturation ABG Carboxyhemoglobin ABG Methemoglobin Gerardo Test A-a O2 Difference Total Hemoglobin Lactate Blood Gas Modality Vent Mode Spontaneous Rate FiO2 % Tidal Volume PEEP Sodium 140 Potassium 3.8 Chloride 110 H Carbon Dioxide 20 L Anion Gap 10 BUN 8 Creatinine 0.8 Estimated GFR/1.73 m2 > 60 BUN/Creatinine Ratio 10 Glucose 70 D Calculated Osmolality 276 Calcium 7.4 L D Magnesium 2.0 Total Bilirubin 0.27 AST 23 ALT 17 Alkaline Phosphatase 54 Total Protein 4.7 L Albumin 2.6 L Globulin 2.1 Albumin/Globulin Ratio 1.2 Urine Source CATH Urine Color ORANGE Urine Turbidity HAZY Urine pH 6.0 Ur Specific [place] 1.030 Urine Protein 50 A Ur Glucose (Stick) NEGATIVE Ur Ketones (Stick) 20 A Urine Blood MODERATE A Urine Nitrite NEGATIVE Urine Bilirubin NEGATIVE Urobilinogen Dipstick NORMAL Urine Leukocytes NEGATIVE Urine WBC (Auto) <10 Urine RBC (Auto) TNTC A U Epithel Cells (Auto) <10 Urine Bacteria (Auto) NEGATIVE 07/01/19 04:35 WBC RBC Hgb Hct MCV MCH MCHC RDW Std Deviation Plt Count MPV Immature Gran % (Auto) Neut % (Auto) Lymph % (Auto) M[place]ulloch % (Auto) Eos % (Auto) Baso % (Auto) Immature Gran # (Auto) Neut # (Auto) Lymph # (Auto) M[place]ulloch # (Auto) Eos # (Auto) Baso # (Auto) Specimen Type ARTERIAL Sample Site R RADIAL pH 7.34 L pCO2 39 pO2 165 H HCO3 21.5 Base Excess -4.4 L Oxyhemoglobin 97.2 ABG O2 Sat (Calculated) 13.6 L ABG O2 Saturation 100.1 H ABG Carboxyhemoglobin 2.00 ABG Methemoglobin 0.9 Gerardo Test YES A-a O2 Difference 71.0 Total Hemoglobin 9.7 L Lactate 0.60 Blood Gas Modality VENTILATOR Vent Mode A/C Spontaneous Rate 15 FiO2 % 40.0 Tidal Volume 400 PEEP 5.0 Sodium Potassium Chloride Carbon Dioxide Anion Gap BUN Creatinine Estimated GFR/1.73 m2 BUN/Creatinine Ratio Glucose Calculated Osmolality Calcium Magnesium Total Bilirubin AST ALT Alkaline Phosphatase Total Protein Albumin Globulin Albumin/Globulin Ratio Urine Source Urine Color Urine Turbidity Urine pH Ur Specific [place] Urine Protein Ur Glucose (Stick) Ur Ketones (Stick) Urine Blood Urine Nitrite Urine Bilirubin Urobilinogen Dipstick Urine Leukocytes Urine WBC (Auto) Urine RBC (Auto) U Epithel Cells (Auto) Urine Bacteria (Auto) Assessment: Acute respiratory failure. Intubated. Toxic metabolic encephalopathy with psychosis secondary to methamphetamine and heroin use. Chronic polysubstance abuse including methamphetamine and heroin. Acute respiratory acidosis, anion gap metabolic acidosis and metabolic alkalosis. Acute kidney injury. Scalp laceration. C5 teardrop fracture without displacement or perivertebral edema. Tobacco abuse. Plan: Continue current treatment and supportive care per admitting and other teams on the case. Start weaning trials today. Appropriate DVT and GI prophylaxis Ventilator settings checked and titrated to Patients needs per clinical protocols with closely monitoring. Sedation (continuous Propofol drip and IV Ativan prn) titrated to patients needs per clinical protocols with closely monitoring. Tobacco cessation education when appropriate. Input was appreciated from Admitting MD and other teams on the case. Evaluation time in minutes: 31 minutes.
[2019-07-01] MEDS: HALDOL IV PRN ×2 (16:20→22:20)
[2019-07-01 17:49] LABS: ALLEN TEST YES; BE -3.8 mmoll (-3.0-3.0); BLOOD TYPE ARTERIAL; METHB 0.9 % (0.0-1.5); O2(CT) 14.6 mL/dL (15.0-23.0); O2HB 96.1 % (95.0-99.0); PCO2(98.6) 39 mmHg (35-45); PO2(98.6) 86 mmHg (60-100); SAMPLE BLOOD; SAO2 98.7 % (95.0-100.0); THB 10.7 g/dL (11.5-17.4); pH(98.6) 7.35 (7.35-7.45)
[2019-07-01 17:50] LABS: MODALITY COOL AEROSOL
[2019-07-01] MEDS ORDERED: NS IV SCH (18:00)
[2019-07-01] MEDS ORDERED: PRECEDEX IV SCH (18:00)
[2019-07-01] MEDS: NS IV SCH ×2 (18:29→21:03)
[2019-07-01] MEDS: PRECEDEX IV SCH ×2 (18:29→21:03)
[2019-07-01] MEDS: GEODON IM PRN (19:13)
[2019-07-01] MEDS: STERILE WATER INJ. INJ PRN (19:13)
[2019-07-02] MEDS: NS 1,000 ML IV SCH ×2 (00:31→08:36)
[2019-07-02] MEDS: STERILE WATER INJ. INJ PRN ×2 (03:15→13:36)
[2019-07-02] MEDS: GEODON IM PRN ×2 (03:15→13:36)
[2019-07-02] MEDS: PRECEDEX IV SCH ×2 (03:15→05:57)
[2019-07-02] MEDS: NS IV SCH ×2 (03:15→05:57)
[2019-07-02] MEDS: HALDOL IV PRN ×2 (04:20→12:07)
--- NOTE | 2019-07-02 08:27 | PROGRESS NOTE ---
DATE: 07/02/2019 SUBJECTIVE: The patient seems to be stable. No family members at the bedside. No changes overnight. He is really sleepy, but he is following commands. He does have generalized weakness. He is on medications to keep him less aggressive. He is on restraints. OBJECTIVE: Vital Signs: Temperature 99 degrees, pulse 77, respiratory rate 26, blood pressure 127/78, and oxygen saturation 100% on a Ventimask. HEENT: Head normocephalic. He has a wound on the right parietal area which is affronted with surgical juan. The area is shaved, and has edema. No signs of bleeding or infection at this moment. Neck: There is a cervical collar in place. He seems to be sedated. He is not complaining of pain. Chest: Clear to auscultation. No wheezing. No rales. Cardiovascular: RRR. Abdomen: Soft, nondistended. Extremities: No edema. No clubbing. No cyanosis. Neurological: This patient is sleepy, but he is slightly arousable. He tries to talk, but I cannot understand what he says, and he is following commands, especially when I ask him to squeeze my hands and wiggle his toes. He is able to open his mouth as well. LABORATORY: No lab work done today. Laboratory is stable from yesterday. ASSESSMENT AND PLAN: 1. Acute drug induced probably psychotic reaction. I do not have any family members at the bedside, but apparently this patient tried to jump out of a window. Apparently, he has been using methamphetamine and opioids. He was intubated and then extubated I believe yesterday. He is NPO, but I will start this patient on Clinimix. I will decrease the rate of the IV fluids from 125 to 50. 2. Respiratory failure status post extubation, he seems to be stable with a mask. 3. Triple- acid-base disturbance on admission, improved. 4. Polysubstance abuse. We have a urine toxicology that is positive for opioids and methamphetamines. 5. Mild rhabdomyolysis. Continue with IV fluids. I will recheck the CK level tomorrow. 6. Acute kidney injury resolved. 7. Fragmentation of a ventral marginal osteophyte at the C5-C6 level. We do not know if this is new or old. This patient is moving his extremities, but he does have generalized weakness and he is really sleepy. Depending on his progression probably, we need to consider an MRI. For now, we will continue with the cervical collar. cc: Frankie Wisdom MD
[2019-07-02] MEDS: LOVENOX SUBQ SCH (08:36)
[2019-07-02] MEDS: PEPCID IV SCH ×2 (08:36→21:11)
[2019-07-02] MEDS: CLINIMIX E 4.25%-5% SOLUTION 1,000 ML IV SCH (09:23)
--- NOTE | 2019-07-02 14:00 | PROVIDER PROGRESS NOTE ---
Progress Note Dr. High Progress Note/Pulmonary and or critical care We appreciated progress of care, Complications, change in diagnosis, and instructions to patient. Subjective: We note the level of consciousness, bed (chair) position, family presence (if any), level of lethargy, feeling of symptoms, and changes from baseline condition/symptom. The patient was successfully extubated yesterday. He is lying in bed with no acute distress noted. He is on a VM 35% at this time. He is awake, alert and restless at this time. He keeps talking, but hard to understand most of time. He is on a 4-point restraint. Father at the bedside. Objective: Vital Signs: We reviewed EMR current values for Pulse rate, Blood pressure, Pulse rate, respiratory rate and Pulse oximetry. Also noted other values and trends if present (e.g. I/O, CVP). T 98.4, NM 71, RR 22, BP 119/74 and SaO2 100% on CAM 35%. I/O +1421 ml Physical Examination: General: In a C-collar. Lying in bed with no acute distress noted. HEENT: Normocephalic. Right parietal scalp laceration with hair shaved and [address] Mucus pink and moist. Chest: Even and unlabored. Symmetrical excursion. Some rhonchi with mildly coarse breathing sounds bilaterally. CVS: Regular rate and rhythm with S1 and S2 appreciated. Abdomen: Soft. Non-distended. Normoactive bowel sounds in all 4 quadrants noted. Extremities: Trace BLE and BUE edema. No cyanosis. No clubbing. Dorsalis pedis 2+ bilaterally. Neuro: Awake. A/O. Labs and Radiology: Reviewed available labs and radiology values available at time of EMR review. Assessment: Acute respiratory failure. Intubated on 06/30/19; extubated on 07/01/19. Toxic metabolic encephalopathy with psychosis secondary to methamphetamine and heroin use. Chronic polysubstance abuse including methamphetamine and heroin. Acute respiratory acidosis, anion gap metabolic acidosis and metabolic alkalosis. Improved. Acute kidney injury. Improved. Scalp laceration. C5 teardrop fracture without displacement or perivertebral edema. Tobacco abuse. Plan: Continue current treatment and supportive care per admitting and other teams on the case. Appropriate DVT and GI prophylaxis Supplemental oxygen titrated to patients needs per clinical protocols. Sedation (prn Haldol and prn Geodon) titrated to patients needs per clinical protocols with closely monitoring. Tobacco cessation education when appropriate. Discuss care plans with family at the bedside and all questions answered. Input was appreciated from Admitting MD and other teams on the case. Evaluation time in minutes: 32 minutes. We are going to sign off of his case now. Please call us if needed. Thank you!
[2019-07-02] MEDS ORDERED: MORPHINE IV ONE (16:03)
[2019-07-02] MEDS: OFIRMEV 1000 MG/ISOTONIC SOLN 1,000 MG/100 ML BOTTLE IV PRN (16:20)
[2019-07-03] MEDS: NS 1,000 ML IV SCH (04:22)
[2019-07-03] MEDS: CLINIMIX E 4.25%-5% SOLUTION 1,000 ML IV SCH (04:22)
[2019-07-03 07:05] LABS: HEMATOCRIT 32.1 % (42.0-52.0); HEMOGLOBIN 10.1 g/dL (14.0-18.0); MCH 28.9 PG (27-31); MCHC 31.5 g/dL (33-37); MPV 11.5 FL (7.4-10.4); RBC 3.49 XMIL (4.7-6.1); RDW 13.8 % (11.5-14.5); WBC 8.9 X1000 (4.8-10.8)
--- NOTE | 2019-07-03 07:28 | PROGRESS NOTE ---
DATE: 07/03/2019 SUBJECTIVE: The patient seems to be stable. No family members at the bedside. He is more awake. He is answering my questions. He does have generalized weakness. He has been placed on Clinimix yesterday. I will try to feed him today. I will ask for a swallow evaluation to make sure that he is doing fine. Once his lab work is back, if his kidney function is good, I will go ahead and ask for an MRI today of the C-spine since apparently he has a fragmentation of the ventral marginal osteophyte at C5 and C6, but I am not sure if this is new or is old. OBJECTIVE: Vital Signs: Temperature 98.9 degrees, pulse 97, respiratory rate 15, blood pressure 161/91. Oxygen saturation 100% on room air. HEENT: Head normocephalic. He has a wound on the right parietal area with surgical juan The area is shaved and he has edema. No signs of bleeding or infection at this moment. Neck: There is a cervical collar in place. He is complaining of pain in the anterior area of the neck. Chest: Clear to auscultation. No wheezing. No rales. Cardiovascular: Regular rate and rhythm. Abdomen: Soft, nondistended. Extremities: No edema, no clubbing, no cyanosis. Neurological: The patient is more awake. He is answering my questions. He is following commands for me. He does have generalized weakness. LABORATORY: Pending lab work at this moment. ASSESSMENT AND PLAN: 1. Acute drug induced with probably psychotic reaction. I do not have any family members at the bedside. As per the patient, he was trying to run from somebody and he tried to jump out of the window. Apparently he has been using drugs, especially methamphetamine. He is positive for opioids as well. He was intubated and then extubated 2 days ago. He is n.p.o. right now, but I put this patient on Clinimix and I have requested an evaluation by the swallow evaluation team. 2. Respiratory failure status post extubation, stable. He is on room air right now, doing fine. 3. Triple acid-base disturbance on admission, improved. 4. Polysubstance abuse. He has a urine toxicology that is positive for opioids and methamphetamines. 5. Mild rhabdomyolysis. I will continue with IV fluids. We will check the CK level today. 6. Acute kidney injury, resolved. 7. Fragmentation of a ventral marginal osteophyte at the C5-C6 level, I do not know if this is new or old. I will get an MRI today to make sure that this is fine. I will continue with the cervical collar in the meantime. The patient seems to be more stable. He is no longer on restraints. I will transfer this patient to the PVC unit. cc: Frankie Wisdom MD MTDD
[2019-07-03 07:29] LABS: AGAP 14; BUN 4 mg/dL (8-22); CALCIUM 7.8 mg/dL (8.8-10.2); CHLORIDE 108 mmol/L (98-107); COSMO 284; CREATININE 0.7 mg/dL (0.7-1.2); ESTIMATED GFR > 60; GLUCOSE 103 mg/dL (70-104); MAGNESIUM 1.6 mg/dL (1.5-2.7); PHOSPHORUS 1.9 mg/dL (2.7-4.5); POTASSIUM 3.5 mmol/L (3.5-5.1); SODIUM 144 mmol/L (136-145); TCO2 22 mmol/L (25-35)
[2019-07-03 07:37] LABS: CK PROFILE 951 U/L (24-204)
[2019-07-03] MEDS: SODIUM CHLORIDE 0.9% INJ SCH (08:00)
[2019-07-03] MEDS: PEPCID IV SCH ×2 (08:00→21:45)
[2019-07-03] MEDS: OFIRMEV 1000 MG/ISOTONIC SOLN 1,000 MG/100 ML BOTTLE IV PRN (08:01)
[2019-07-03] MEDS: LOVENOX SUBQ SCH (08:01)
[2019-07-03 08:07] LABS: CK INDEX 0.2 (0.0-2.5); CK-MB 1.78 ng/mL (0.0-5.0)
--- NOTE | 2019-07-03 10:07 | Diag Imaging Result Doc PS360 ---
EXAM: MRI C-SPINE W/WO CONTRAST INDICATION: R/O fracture, recent neck trauma TECHNIQUE: COMPARISON: CT C-spine dated 06/30/2019 FINDINGS: The small fragmented ventral osteophyte at C5-6 seen on the recent CT is again identified. There is no associated edema with the bony fragment or with the adjacent C5 vertebra. This indicates that it is chronic. There is no other abnormal marrow signal to suggesting acute bony injury. The cervical spinal cord exhibits normal signal. The structures at the base of the brain and the surrounding soft tissues are unremarkable. Segmental analysis of the cervical spine reveals no significant disc pathology, central canal stenosis, or neuroforaminal stenosis. IMPRESSION: No evidence of acute fracture. Please see above discussion. Electronically signed by Sarmad Hebert 07/03/2019 10:05 AM
[2019-07-04 06:51] LABS: BASO# 0.02 X1000 (0.0-0.2); BASO% 0.3 % (0.0-0.8); EOS% 2.7 % (0.0-10.0); HEMATOCRIT 33.7 % (42.0-52.0); HEMOGLOBIN 10.8 g/dL (14.0-18.0); IMM GRAN# 0.08 X1000 (0.0-0.04); IMM GRAN% 1.1 % (0.0-0.5); LYMPH# 1.66 X1000 (1.2-3.4); LYMPH% 22.6 % (20.5-51.1); MCH 28.4 PG (27-31); MCV 88.7 FL (81-99); MONO# 0.66 X1000 (0.11-0.59); MPV 10.7 FL (7.4-10.4); NEUT# 4.74 X1000 (1.4-6.5); NEUT% 64.3 % (42.2-75.2); PLT 243 X1000 (130-400); RDW 13.2 % (11.5-14.5); WBC 7.36 X1000 (4.8-10.8)
[2019-07-04 07:11] LABS: AGAP 10; BUN 5 mg/dL (8-22); CALCIUM 8.3 mg/dL (8.8-10.2); CHLORIDE 106 mmol/L (98-107); COSMO 280; CREATININE 0.6 mg/dL (0.7-1.2); ESTIMATED GFR > 60; GLUCOSE 94 mg/dL (70-104); POTASSIUM 3.5 mmol/L (3.5-5.1); SODIUM 142 mmol/L (136-145); TCO2 26 mmol/L (25-35)
[2019-07-04] MEDS: PEPCID IV SCH (09:02)
[2019-07-04] MEDS: LOVENOX SUBQ SCH (09:02)
[2019-07-04] MEDS: SODIUM CHLORIDE 0.9% INJ SCH (09:02)
[2019-07-04] MEDS: NS 1,000 ML IV SCH (09:47)
[2019-07-04 11:17] VITALS: BP 144/91
--- NOTE | 2019-07-04 13:44 | DISCHARGE SUMMARY ---
ADMISSION DATE: 06/30/2019 DISCHARGE DATE: 07/04/2019 DISPOSITION: Home. FOLLOWUP: 1. Dr. High. 2. Dr. Astudillo at [facility] in [place]. 3. The patient is also going to be following up with [facility] at [place] for drug rehabilitation. CONSULTATION DURING THIS ADMISSION: Pulmonary was consulted, patient was seen by Dr. High. INVASIVE PROCEDURES DONE DURING THIS ADMISSION: None. IMAGING STUDIES OF SIGNIFICANCE: 1. CT scan of the head and spine without contrast showed no evidence of acute intracranial pathology. There was prominent scalp edema on the right but no calvarial fracture. There was fragmentation of the ventral marginal osteophyte at the C5-C6 level was questionable. 2. An initial chest x-ray did show left basilar pulmonary mass or masslike infiltrate. 3. A CT scan of the spine showed no acute disease. Cervical spine show no acute disease. 4. A repeat chest x-ray showed stable pulmonary masslike opacity in the left lung. No new infiltrates. 5. A cervical spine MRI showed no evidence of acute fracture. ADMISSION DIAGNOSIS: 1. Toxic metabolic encephalopathy. 2. Respiratory acidosis. 3. Hyperglycemia. 4. Teardrop fracture of C5 without displacement and periventricular edema. 5. Methamphetamine and heroin use and abuse. DIAGNOSIS AT THE TIME OF DISCHARGE: 1. Acute drug-induced psychotic reaction. 2. Altered mental status on presentation secondary to drug-induced encephalopathy. 3. Respiratory failure. Patient was initially mechanically ventilated. 4. Triple acid-base disturbance on admission, improved. 5. Polysubstance use and abuse with urine toxicology positive for methamphetamine and opioids. 6. Left lower lobe masslike infiltrate, questionable aspiration pneumonia. Patient has been started on p.o. antibiotics. 7. Small fragmented ventral osteophyte at C5-6, presumed to be chronic with no cord abnormality. The patient has been advised to follow up with Dr. [facility]studillo [facility] [place]. DISCHARGE MEDICATIONS: Augmentin 875 b.i.d. for 7 days. Guaifenesin p.r.n. for cough. PRESENTING COMPLAINT: Altered mental status. HISTORY OF PRESENT COMPLAINT: Mr. Daivla is 29-year-old, gentleman with a history of previous drug use and abuse in the past. Patient has been in rehab multiple times. Came in this time, according to the father the patient became paranoid and hallucinating, tried jumping out of a window and then hurt his skull. The father called the EMR. Patient was brought into the emergency room and I understand he was extremely belligerent and violent and psychotic. He had to be given about 500 mg of ketamine. Upon arrival to the emergency room he was completely altered and had to be intubated to preserve the airway. HOSPITAL COURSE: Mr. Davila initially presented to [place] where he was evaluated, stabilized and then transferred here to [facility] for higher level of care. Mr. Davila was treated throughout his hospital course in the ICU. He was initially intubated and was successfully extubated a day after, and has remained off the ventilator for the past 3 days. Mr. Davila also had some imaging with some concern about his C-spine on the CAT scan. An MRI was done which showed a chronic osteophyte fracture, but no new or cord issue. He has been advised to follow up with Dr[facility]. Mr. Davila was also advised at every encounter about recreational drug use cessation. He himself has volunteered to follow up at [facility] at [place]. He said he has been their multiple times and he really needs help and he is going to go there again for rehabilitation. He is supposed to follow up with Pulmonary Medicine at the end of his antimicrobial treatment to repeat x-rays or even a CT scan on the lungs to follow up on this masslike findings on this a chest x- ray. All of the discharge instructions have been discussed with him and he voiced understanding. Time spent for discharge is 35 minutes. cc: MD PASTOR Manriquez
== END 2019-07-04 13:00 | disposition home or self-care (01) | DRG 896 ==
LOC: ED 02:27 → SUATTDRO 07:21 → ICU 07:21
PROVIDERS: ATTEND Internal Medicine